=== PATIENT | female | born 1965 | race Caucasian/White ===

== ENCOUNTER 2019-06-04 23:46 | Emergency (ER) | payer SELFPAY ==
[2019-06-05 00:29] LABS: ABSOLUTE BASOPHILS # (AUTO) 0.1 10^3/uL (0.0-0.2); ABSOLUTE EOSINOPHILS # (AUTO) 0.2 10^3/uL (0.0-0.6); ABSOLUTE LYMPHOCYTES (AUTO) 2.4 10^3/uL (0.5-4.7); ABSOLUTE MONOCYTES (AUTO) 0.7 10^3/uL (0.1-1.4); ABSOLUTE NEUT (AUTO) 3.7 10^3/uL (1.7-8.2); EOSINOPHILS % (AUTO) 3.3 % (0-6); HEMATOCRIT 42.7 % (36.0-47.0); HEMOGLOBIN 14.4 g/dL (12.0-15.5); MEAN CORPUSCULAR HEMOGLOBIN 30.8 pg (27.0-33.4); MEAN CORPUSCULAR HGB CONC 33.6 g/dL (32.0-36.0); MEAN CORPUSCULAR VOLUME 92 fl (80-97); MONOCYTES % (AUTO) 9.5 % (3-13); PLATELET COUNT 325 10^3/uL (150-450); RED BLOOD COUNT 4.66 10^6/uL (3.72-5.28); RED CELL DISTRIBUTION WIDTH 12.9 % (11.5-14.0); SEGMENTED NEUTROPHILS % (AUTO) 52.2 % (42-78); TOTAL CELLS COUNTED % (AUTO) 100 %; WHITE BLOOD COUNT 7.1 10^3/uL (4.0-10.5)
[2019-06-05 00:47] LABS: ACETAMINOPHEN < 10 ug/mL (10-30); ALCOHOL < 10 mg/dL (NONE DETECTED); ALKALINE PHOSPHATASE 77 U/L (38-126); ANION GAP 9 (5-19); ASPARTATE AMINO TRANSFERASE 22 U/L (14-36); BILIRUBIN,DIRECT 0.2 mg/dL (0.0-0.4); BILIRUBIN,TOTAL 0.4 mg/dL (0.2-1.3); BLOOD UREA NITROGEN 17 mg/dL (7-20); CALCIUM 9.2 mg/dL (8.4-10.2); CARBON DIOXIDE 25 mmol/L (22-30); CHLORIDE 104 mmol/L (98-107); GLUCOSE 120 mg/dL (75-110); POTASSIUM 3.9 mmol/L (3.6-5.0); SALICYLATE < 1.0 mg/dL (2.0-20.0); TOTAL PROTEIN 6.8 g/dL (6.3-8.2)
--- NOTE | 2019-06-05 02:15 | ER Document Report ---
ED General - General Chief Complaint: Suicidal Ideation Stated Complaint: PSYCH Time Seen by Provider: 06/05/19 01:10 Mode of Arrival: Ambulatory TRAVEL OUTSIDE OF THE U.S. IN LAST 30 DAYS: No - HPI Patient complains to provider of: SI, hallucinations Onset: Other - over the last several days Onset/Duration: Gradual Quality of pain: No pain Severity: Moderate Pain Level: Denies Associated symptoms: None Exacerbated by: Denies Relieved by: Denies Similar symptoms previously: Yes Recently seen / treated by doctor: No Notes: 54 year old female with a history of Bipolar, Anxiety, Depression who is main tained on Vayas and Serroquel (but says she has been out of these medications for 2 weeks) here for hallucinations and thoughts of SI. The patient says she hears voices of people telling her to jump into oncoming traffic. The patient is very tangential in her ER room and a full history is difficult to obtain. The patient admits to polysubstance abuse with very recent Meth use. - Related Data Allergies/Adverse Reactions: No Known Allergies Allergy (Verified 06/05/19 00:32) Home Medications: Vayas. Seraquel. Alprazolam Past Medical History - Social History Smoking Status: Current Every Day Smoker Chew tobacco use (# tins/day): No Drug Abuse: Cocaine, Marijuana, Methamphetamine Family History: Reviewed & Not Pertinent Patient has suicidal ideation: Yes Patient has homicidal ideation: No - Past Medical History Cardiac Medical History: Reports: None Pulmonary Medical History: Reports: None EENT Medical History: Reports: None Neurological Medical History: Reports: None Endocrine Medical History: Reports: None Renal/ Medical History: Reports: None GI Medical History: Reports: None Musculoskeletal Medical History: Reports None Skin Medical History: Reports None Psychiatric Medical History: Reports: Hx Anxiety, Hx Bipolar Disorder, Hx Depression Review of Systems - Review of Systems Constitutional: No symptoms reported EENT: No symptoms reported Cardiovascular: No symptoms reported, Heart racing Gastrointestinal: No symptoms reported Genitourinary: No symptoms reported Female Genitourinary: No symptoms reported Musculoskeletal: No symptoms reported Skin: No symptoms reported Hematologic/Lymphatic: No symptoms reported Neurological/Psychological: Depression, Anxiety, Hallucinations, Suicidal ideation Physical Exam - Vital signs Vitals: Temp Pulse Resp BP Pulse Ox 97.4 F 92 26 H 139/71 H 99 06/04/19 23:57 06/04/19 23:57 06/04/19 23:57 06/04/19 23:57 06/04/19 23:57 - Notes Notes: GENERAL: Well-appearing, well-nourished and in no acute distress. HEAD: Atraumatic, normocephalic. EYES: Pupils equal round and reactive to light, extraocular movements intact, sclera anicteric, conjunctiva are normal. ENT: Nares patent, oropharynx clear without exudates. Moist mucous membranes. NECK: Normal range of motion, supple without lymphadenopathy or JVD. LUNGS: Breath sounds clear to auscultation bilaterally and equal. No wheezes rales or rhonchi. HEART: Regular rate and rhythm without murmurs, rubs or gallops. ABDOMEN: Soft, nontender, normoactive bowel sounds. No guarding, no rebound. No masses appreciated. EXTREMITIES: Normal range of motion, no pitting or edema. No clubbing or cyanosis. NEUROLOGICAL: Cranial nerves II through XII grossly intact. Normal speech, normal gait. PSYCH: Tangential, hearing voices, suicidal SKIN: Warm, Dry, normal turgor, no rashes or lesions noted. Course - Re-evaluation Re-evalutation: 06/05/19 05:23 The patient is medically cleared and awaiting psych disposition. The patient has been off her meds and using Meth but she has thoughts of SI. - Vital Signs Vital signs: Temp Pulse Resp BP Pulse Ox 97.5 F 87 20 125/69 96 06/05/19 04:17 06/05/19 04:17 06/05/19 04:17 06/05/19 04:17 06/05/19 04:17 - Laboratory Result Diagrams: 06/05/19 00:15 06/05/19 00:15 Laboratory results interpreted by me: 06/05/19 06/05/19 06/05/19 00:15 00:15 04:10 Glucose 120 H Urine Blood SMALL H Salicylates < 1.0 L Acetaminophen < 10 L Vayas < 0.2 L - Transfer of Care Care transferred to following provider: Dr. Hoyt at shift change at 6am on 06/05/19. Discharge - Discharge Clinical Impression: Suicidal ideation, Substance abuse Disposition: OTHER
[2019-06-05 04:28] LABS: APPEARANCE,URINE CLEAR; BILIRUBIN,URINE NEGATIVE (NEGATIVE); COLOR,URINE YELLOW; GLUCOSE, URINE NEGATIVE (NEGATIVE); KETONES,URINE NEGATIVE (NEGATIVE); LEUKOCYTE ESTERASE,URINE NEGATIVE (NEGATIVE); NITRITE,URINE NEGATIVE (NEGATIVE); PROTEIN,URINE NEGATIVE (NEGATIVE); URINE SPECIFIC GRAVITY 1.015; UROBILINOGEN,URINE NEGATIVE mg/dL (<2.0)
[2019-06-05 04:44] LABS: URINE BARBITURATES SCREEN NEGATIVE; URINE BENZODIAZEPINES SCREEN NEGATIVE; URINE COCAINE SCREEN NEGATIVE; URINE MARIJUANA (THC) SCREEN NEGATIVE; URINE METHADONE SCREEN NEGATIVE; URINE PHENCYCLIDINE SCREEN NEGATIVE
--- NOTE | 2019-06-05 13:09 | EKG REPORT ---
SEVERITY:- NORMAL ECG - SINUS RHYTHM : Confirmed by: Latesha Easley MD 05-Jun-2019 13:08:19
--- NOTE | 2019-06-05 13:09 | ER Document Report ---
Doctor's Note Notes: 06/05/19 13:00 PHYSICAL EXAMINATION: GENERAL: Patient with increased psychomotor agitation and in no acute distress. HEAD: Atraumatic, normocephalic. EYES: sclera anicteric, conjunctiva are normal. ENT: nares patent. Moist mucous membranes. NECK: Normal range of motion, supple without lymphadenopathy LUNGS: CTAB and equal. No wheezes rales or rhonchi. HEART: Regular rate and rhythm without murmurs EXTREMITIES: Normal range of motion, no pitting edema. No cyanosis. BACK: No midline tenderness, no step-off or deformity. No CVA tenderness NEUROLOGICAL: Cranial nerves grossly intact. Normal speech. PSYCH: Patient with increased psychomotor agitation and occasional tangential speech. Patient reports occasional suicidal ideation SKIN: Warm, Dry, normal turgor, no rashes or lesions noted Patient's diagnostic evaluation and notes reviewed. Patient appears medically stable for transfer or discharge pending mental health evaluation. 06/05/19 14:58 Mental health team recommend Haldol 5 mg orally twice a day and Cogentin 1 mg daily. (NOAH PEDROZA)
[2019-06-05] MEDS ORDERED: BENZTROPINE MESYLATE 1 MG TABLET PO ONE (14:57)
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
[2019-06-05] MEDS: HALOPERIDOL 5 MG TABLET PO SCH (18:27)
[2019-06-06] MEDS ORDERED: BENZTROPINE MESYLATE 1 MG TABLET PO SCH (10:00)
[2019-06-06] MEDS: HALOPERIDOL 5 MG TABLET PO SCH ×2 (10:21→19:32)
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
[2019-06-06] MEDS ORDERED: IBUPROFEN 800 MG TABLET PO ONE (14:36)
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
[2019-06-06 22:32] VITALS: BP 125/49
== END 2019-06-06 21:30 | disposition other institution (70) ==
LOC: ER 23:46
DX: R45.851 Suicidal ideations (principal); F14.10 Cocaine abuse, uncomplicated; F12.10 Cannabis abuse, uncomplicated; F15.10 Other stimulant abuse, uncomplicated; F31.9 Bipolar disorder, unspecified; M54.9 Dorsalgia, unspecified; R44.0 Auditory hallucinations; F17.200 Nicotine dependence, unspecified, uncomplicated; F41.9 Anxiety disorder, unspecified
CPT/HCPCS: 36415; 80053; 80178; 80307; 81001; 85025; 93005; 93010; 99285

== ENCOUNTER 2019-06-27 17:41 | Emergency (ER) | payer SELFPAY ==
--- NOTE | 2019-06-27 18:37 | ER Document Report ---
ED Medical Screen (RME) - General Chief Complaint: Psych Problem Stated Complaint: PSYCH EVAL/SUICIDAL IDEATION Time Seen by Provider: 06/27/19 18:33 Mode of Arrival: Ambulatory Information source: Patient Notes: This 54-year-old female presents emergency department with reports of some suicidal ideations. Reports she just got out of the hospital a few weeks ago. Reports she lives with her daughter. Also reports she is feeling electricity run through her body and is messing up her thoughts. Reports history of bipolar. She reports denies drug abuse. Patient is calm. I have greeted and performed a rapid initial assessment of this patient. A comprehensive ED assessment and evaluation of the patient, analysis of test results and completion of the medical decision making process will be conducted by additional ED providers. TRAVEL OUTSIDE OF THE U.S. IN LAST 30 DAYS: No - Related Data Allergies/Adverse Reactions: No Known Allergies Allergy (Verified 06/05/19 00:32) Past Medical History Psychiatric Medical History: Reports: Hx Anxiety, Hx Bipolar Disorder, Hx Dep ression Physical Exam - Vital signs Vitals: Temp Pulse Resp BP Pulse Ox 98.5 F 99 18 131/84 H 98 06/27/19 18:07 06/27/19 18:07 06/27/19 18:07 06/27/19 18:07 06/27/19 18:07 Course - Vital Signs Vital signs: Temp Pulse Resp BP Pulse Ox 98.5 F 99 18 131/84 H 98 06/27/19 18:07 06/27/19 18:07 06/27/19 18:07 06/27/19 18:07 06/27/19 18:07
--- NOTE | 2019-06-27 19:17 | ER Document Report ---
ED Psych Disorder / Suicide - General Chief Complaint: Psych Problem Stated Complaint: PSYCH EVAL/SUICIDAL IDEATION Time Seen by Provider: 06/27/19 18:33 Mode of Arrival: Ambulatory Notes: 54-year-old female presents for suicidal ideation and feeling as though there are "frequencies running through her body." Patient denies a specific plan however states she is suicidal for the past few days due to "depression." P atient states she was here a few weeks ago and has not been taking her psychiatric medications. Patient denies any pain or nausea/vomiting. Patient has no other complaints. TRAVEL OUTSIDE OF THE U.S. IN LAST 30 DAYS: No - Related Data Allergies/Adverse Reactions: No Known Allergies Allergy (Verified 06/05/19 00:32) Home Medications: lithium Past Medical History - General Information source: Patient - Social History Smoking Status: Current Every Day Smoker Frequency of alcohol use: None Drug Abuse: None Family History: Reviewed & Not Pertinent Patient has suicidal ideation: Yes Patient has homicidal ideation: No Psychiatric Medical History: Reports: Hx Anxiety, Hx Bipolar Disorder, Hx Depression Review of Systems - Review of Systems Notes: Constitutional: Negative for fever. HENT: Negative for sore throat. Eyes: Negative for visual changes. Cardiovascular: Negative for chest pain. Respiratory: Negative for shortness of breath. Gastrointestinal: Negative for abdominal pain, vomiting or diarrhea. Genitourinary: Negative for dysuria. Musculoskeletal: Negative for back pain. Skin: Negative for rash. Neurological: Negative for headaches, weakness or numbness. Psych: Positive for SI. 10 point ROS negative except as marked above and in HPI. Physical Exam - Vital signs Vitals: Temp Pulse Resp BP Pulse Ox 98.5 F 99 18 131/84 H 98 06/27/19 18:07 06/27/19 18:07 06/27/19 18:07 06/27/19 18:07 06/27/19 18:07 - Notes Notes: GENERAL: Well-appearing, well-nourished and in no acute distress. HEAD: Atraumatic, normocephalic. EYES: Extraocular movements intact, sclera anicteric, conjunctiva are normal. NECK: Normal range of motion, supple without lymphadenopathy or JVD. LUNGS: Breath sounds clear to auscultation bilaterally and equal. No wheezes rales or rhonchi. HEART: Regular rate and rhythm without murmurs, rubs or gallops. ABDOMEN: Soft, nontender. No guarding, no rebound. No masses appreciated. EXTREMITIES: Normal range of motion, no pitting or edema. No clubbing or cyanosis. NEUROLOGICAL: Cranial nerves II through XII grossly intact. Normal speech, normal gait. PSYCH: Normal mood, normal affect. SKIN: Warm, Dry, normal turgor, no rashes or lesions noted. Course - Re-evaluation Re-evalutation: 06/27/19 19:15 54-year-old female presents for SI and feeling as though there are "frequencies running through her body." Patient does not have a specific plan. Patient is supposed to be on lithium. Patient was seen in this ER a few weeks ago for similar complaints. Patient has no other complaints. Nontoxic, well-appearing. Lungs clear to auscultation bilaterally. Regular rate and rhythm. Abdomen soft nontender. PE is otherwise unremarkable. Lab work and UA initiated to medically clear patient. Robinette level was also ordered. Once lab work has been received and resulted patient will be medically cleared for psychiatric evaluation. 06/27/19 19:50 Patient's potassium is 5.2 and BUN is elevated. Patient given 1 L of fluid to drink p.o. Patient has been medically cleared at this time. - Vital Signs Vital signs: Temp Pulse Resp BP Pulse Ox 98.5 F 99 18 131/84 H 98 06/27/19 18:07 06/27/19 18:07 06/27/19 18:07 06/27/19 18:07 06/27/19 18:07 - Laboratory Result Diagrams: 06/27/19 18:48 06/27/19 18:48 Laboratory results interpreted by me: 06/27/19 06/27/19 18:48 18:48 Potassium 5.2 H BUN 24 H Est GFR (MDRD) Non-Af 54 L Urine Blood SMALL H Salicylates < 1.0 L Acetaminophen < 10 L Discharge - Discharge Clinical Impression: Suicidal ideation Condition: Stable Disposition: PSYCH HOSP/UNIT
[2019-06-27 19:18] LABS: ABSOLUTE EOSINOPHILS # (AUTO) 0.2 10^3/uL (0.0-0.6); ABSOLUTE LYMPHOCYTES (AUTO) 2.3 10^3/uL (0.5-4.7); ABSOLUTE MONOCYTES (AUTO) 0.6 10^3/uL (0.1-1.4); ABSOLUTE NEUT (AUTO) 6.6 10^3/uL (1.7-8.2); BASOPHILS % (AUTO) 0.5 % (0-2); EOSINOPHILS % (AUTO) 2.3 % (0-6); HEMATOCRIT 44.7 % (36.0-47.0); HEMOGLOBIN 15.5 g/dL (12.0-15.5); LYMPHOCYTES % (AUTO) 23.7 % (13-45); MEAN CORPUSCULAR HEMOGLOBIN 31.7 pg (27.0-33.4); MEAN CORPUSCULAR HGB CONC 34.7 g/dL (32.0-36.0); MEAN CORPUSCULAR VOLUME 91 fl (80-97); MONOCYTES % (AUTO) 6.5 % (3-13); PLATELET COUNT 404 10^3/uL (150-450); RED CELL DISTRIBUTION WIDTH 13.6 % (11.5-14.0); TOTAL CELLS COUNTED % (AUTO) 100 %; WHITE BLOOD COUNT 9.9 10^3/uL (4.0-10.5)
[2019-06-27 19:29] LABS: APPEARANCE,URINE CLEAR; BILIRUBIN,URINE NEGATIVE (NEGATIVE); COLOR,URINE STRAW; GLUCOSE, URINE NEGATIVE (NEGATIVE); KETONES,URINE NEGATIVE (NEGATIVE); LEUKOCYTE ESTERASE,URINE NEGATIVE (NEGATIVE); NITRITE,URINE NEGATIVE (NEGATIVE); PROTEIN,URINE NEGATIVE (NEGATIVE); URINE SPECIFIC GRAVITY 1.014; UROBILINOGEN,URINE NEGATIVE mg/dL (<2.0)
[2019-06-27 19:33] LABS: URINE AMPHETAMINES SCREEN NEGATIVE; URINE BARBITURATES SCREEN NEGATIVE; URINE BENZODIAZEPINES SCREEN NEGATIVE; URINE COCAINE SCREEN NEGATIVE; URINE MARIJUANA (THC) SCREEN NEGATIVE; URINE METHADONE SCREEN NEGATIVE; URINE PHENCYCLIDINE SCREEN NEGATIVE
[2019-06-27 19:40] LABS: ACETAMINOPHEN < 10 ug/mL (10-30); ALBUMIN 4.3 g/dL (3.5-5.0); ALCOHOL < 10 mg/dL (NONE DETECTED); ALKALINE PHOSPHATASE 94 U/L (38-126); ANION GAP 8 (5-19); ASPARTATE AMINO TRANSFERASE 24 U/L (14-36); BILIRUBIN,DIRECT 0.2 mg/dL (0.0-0.4); BILIRUBIN,TOTAL 0.4 mg/dL (0.2-1.3); BLOOD UREA NITROGEN 24 mg/dL (7-20); CALCIUM 9.8 mg/dL (8.4-10.2); CARBON DIOXIDE 30 mmol/L (22-30); CHLORIDE 102 mmol/L (98-107); GLUCOSE 94 mg/dL (75-110); LITHIUM 0.7 mEq/L (0.6-1.2); POTASSIUM 5.2 mmol/L (3.6-5.0); SALICYLATE < 1.0 mg/dL (2.0-20.0); TOTAL PROTEIN 7.3 g/dL (6.3-8.2)
[2019-06-27] MEDS ORDERED: NICOTINE 14 MG/24 HR PATCH.TD24 TD ONE (20:59)
[2019-06-27] MEDS ORDERED: HYDROXYZINE PAMOATE 50 MG CAPSULE PO ONE (21:54)
--- NOTE | 2019-06-27 22:54 | EKG REPORT ---
SEVERITY:- NORMAL ECG - SINUS RHYTHM : Confirmed by: Latesha Easley MD 27-Jun-2019 22:54:08
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
--- NOTE | 2019-06-28 13:21 | ER Document Report ---
Doctor's Note Notes: 06/28/19 13:20 The psychology/psychiatry team is seen and assessed the patient. They do not believe that the patient is a threat to themselves at this time. Patient denies any suicidal or homicidal ideations. Patient denies any auditory visual hallucinations. Patient has been taking her lithium. We have provided outpa tient follow-up for Valeria Fernandez. We did call the patient's daughter who is currently at bedside. She is comfortable with the patient going home. Strict return precautions have been explained.
[2019-06-28 13:31] VITALS: BP 120/61
== END 2019-06-28 13:31 | disposition home or self-care (01) ==
LOC: ER 17:41
DX: R45.851 Suicidal ideations (principal); F17.200 Nicotine dependence, unspecified, uncomplicated
CPT/HCPCS: 36415; 80053; 80178; 80307; 81001; 85025; 93005; 93010; 99285

== ENCOUNTER 2019-07-19 16:00 | Emergency (ER) | payer SELFPAY ==
--- NOTE | 2019-07-19 16:18 | ER Document Report ---
ED Medical Screen (RME) - General Chief Complaint: Psych Problem Stated Complaint: PSYCH EVAL Time Seen by Provider: 07/19/19 16:14 TRAVEL OUTSIDE OF THE [place].S. IN LAST 30 DAYS: No - HPI Notes: 07/19/19 16:16 Patient is a 54-year-old female with a history of anxiety, depression, bipolar who presents complaining that she is having acute psychosis and the voices in her head are telling her to overdose on her lithium. Patient states that she does have a plan to do so, which is why she came here for help. She has been taking her medicines otherwise as directed. She is able to eat and drink without difficulty. No fever, chest pain, shortness of breath. I have treated and performed a rapid initial assessment of this patient. A comprehensive ED assessment and evaluation of the patient, analysis of test results and completion of medical decision making process will be conducted by additional ED providers. PHYSICAL EXAMINATION: GENERAL: Well-appearing, well-nourished and in no acute distress. Answers questions appropriately. Psych: Patient is emotional, tearful, poor eye contact - Related Data Allergies/Adverse Reactions: No Known Allergies Allergy (Verified 07/19/19 16:14) Past Medical History Psychiatric Medical History: Reports: Hx Anxiety, Hx Bipolar Disorder, Hx Depression - psychotic
[2019-07-19 16:57] LABS: ABSOLUTE EOSINOPHILS # (AUTO) 0.1 10^3/uL (0.0-0.6); ABSOLUTE LYMPHOCYTES (AUTO) 1.7 10^3/uL (0.5-4.7); ABSOLUTE MONOCYTES (AUTO) 0.5 10^3/uL (0.1-1.4); ABSOLUTE NEUT (AUTO) 4.6 10^3/uL (1.7-8.2); BASOPHILS % (AUTO) 0.6 % (0-2); EOSINOPHILS % (AUTO) 1.3 % (0-6); HEMATOCRIT 43.9 % (36.0-47.0); HEMOGLOBIN 15.4 g/dL (12.0-15.5); LYMPHOCYTES % (AUTO) 24.3 % (13-45); MEAN CORPUSCULAR HEMOGLOBIN 31.6 pg (27.0-33.4); MEAN CORPUSCULAR HGB CONC 35.1 g/dL (32.0-36.0); MEAN CORPUSCULAR VOLUME 90 fl (80-97); MONOCYTES % (AUTO) 7.8 % (3-13); PLATELET COUNT 292 10^3/uL (150-450); RED BLOOD COUNT 4.87 10^6/uL (3.72-5.28); RED CELL DISTRIBUTION WIDTH 13.1 % (11.5-14.0); TOTAL CELLS COUNTED % (AUTO) 100 %; WHITE BLOOD COUNT 6.9 10^3/uL (4.0-10.5)
[2019-07-19 17:02] LABS: APPEARANCE,URINE CLEAR; BILIRUBIN,URINE NEGATIVE (NEGATIVE); COLOR,URINE YELLOW; GLUCOSE, URINE NEGATIVE (NEGATIVE); KETONES,URINE NEGATIVE (NEGATIVE); LEUKOCYTE ESTERASE,URINE NEGATIVE (NEGATIVE); NITRITE,URINE NEGATIVE (NEGATIVE); PROTEIN,URINE NEGATIVE (NEGATIVE); URINE SPECIFIC GRAVITY 1.011; UROBILINOGEN,URINE NEGATIVE mg/dL (<2.0)
[2019-07-19 17:18] LABS: ALBUMIN 4.3 g/dL (3.5-5.0); ALKALINE PHOSPHATASE 97 U/L (38-126); ANION GAP 7 (5-19); ASPARTATE AMINO TRANSFERASE 20 U/L (14-36); BILIRUBIN,TOTAL 0.4 mg/dL (0.2-1.3); BLOOD UREA NITROGEN 16 mg/dL (7-20); CALCIUM 10.1 mg/dL (8.4-10.2); CARBON DIOXIDE 28 mmol/L (22-30); CHLORIDE 103 mmol/L (98-107); GLUCOSE 97 mg/dL (75-110); POTASSIUM 4.9 mmol/L (3.6-5.0); TOTAL PROTEIN 7.2 g/dL (6.3-8.2)
[2019-07-19 17:21] LABS: URINE AMPHETAMINES SCREEN NEGATIVE; URINE BARBITURATES SCREEN NEGATIVE; URINE BENZODIAZEPINES SCREEN NEGATIVE; URINE COCAINE SCREEN NEGATIVE; URINE MARIJUANA (THC) SCREEN NEGATIVE; URINE METHADONE SCREEN NEGATIVE; URINE PHENCYCLIDINE SCREEN NEGATIVE
[2019-07-19 17:23] LABS: ACETAMINOPHEN < 10 ug/mL (10-30); ALCOHOL < 10 mg/dL (NONE DETECTED); LITHIUM < 0.2 mEq/L (0.6-1.2); SALICYLATE < 1.0 mg/dL (2.0-20.0)
[2019-07-19] MEDS ORDERED: NICOTINE 14 MG/24 HR PATCH.TD24 TD ONE (17:54)
--- NOTE | 2019-07-19 17:58 | ER Document Report ---
ED General - General Chief Complaint: Suicidal Ideation Stated Complaint: PSYCH EVAL Time Seen by Provider: 07/19/19 16:14 Notes: 54-year-old female with history of anxiety, depression, bipolar presents for SI. Patient states the voices in her head are telling her to overdose on her lithium. Patient states she has these intermittent episodes of psychosis where this occurs. Patient denies any chest pain, dyspnea, nausea/vomiting, or pain anywhere. Patient is requesting a nicotine patch due to smoking a pack of cigarettes every 2 days. TRAVEL OUTSIDE OF THE [place] IN LAST 30 DAYS: No - Related Data Allergies/Adverse Reactions: No Known Allergies Allergy (Verified 07/19/19 16:14) Past Medical History - Social History Smoking Status: Current Every Day Smoker Drug Abuse: Methamphetamine Family History: Reviewed & Not Pertinent Patient has suicidal ideation: No Patient has homicidal ideation: No Psychiatric Medical History: Reports: Hx Anxiety, Hx Bipolar Disorder, Hx De pression - psychotic Review of Systems - Review of Systems Notes: Constitutional: Negative for fever. HENT: Negative for sore throat. Eyes: Negative for visual changes. Cardiovascular: Negative for chest pain. Respiratory: Negative for shortness of breath. Gastrointestinal: Negative for abdominal pain, vomiting or diarrhea. Genitourinary: Negative for dysuria. Musculoskeletal: Negative for back pain. Skin: Negative for rash. Neurological: Negative for headaches, weakness or numbness. Psych: Positive for SI and auditory hallucinations. Negative for HI. 10 point ROS negative except as marked above and in HPI. Physical Exam - Vital signs Vitals: Temp Pulse Resp BP Pulse Ox 97.5 F 89 18 132/88 H 100 07/19/19 16:17 07/19/19 16:17 07/19/19 16:17 07/19/19 16:17 07/19/19 16:17 - Notes Notes: GENERAL: Well-appearing, well-nourished and in no acute distress. HEAD: Atraumatic, normocephalic. EYES: Extraocular movements intact, sclera anicteric, conjunctiva are normal. NECK: Normal range of motion, supple without lymphadenopathy or JVD. LUNGS: Breath sounds clear to auscultation bilaterally and equal. No wheezes rales or rhonchi. HEART: Regular rate and rhythm without murmurs, rubs or gallops. ABDOMEN: Soft, nontender. No guarding, no rebound. No masses appreciated. EXTREMITIES: Normal range of motion, no pitting or edema. No clubbing or cyanosis. NEUROLOGICAL: Cranial nerves II through XII grossly intact. Normal speech, normal gait. PSYCH: Depressed mood. SKIN: Warm, Dry, normal turgor, no rashes or lesions noted. Course - Re-evaluation Re-evalutation: 07/19/19 SI with auditory hallucinations. Similar episodes when "I am psychotic." Labwork reviewed. Pt is medically cleared at this time for psychiatric evaluation. - Vital Signs Vital signs: Temp Pulse Resp BP Pulse Ox 97.5 F 89 18 132/88 H 100 07/19/19 16:17 07/19/19 16:17 07/19/19 16:17 07/19/19 16:17 07/19/19 16:17 - Laboratory Result Diagrams: 07/19/19 16:27 07/19/19 16:27 Laboratory results interpreted by me: 07/19/19 07/19/19 16:27 16:27 Est GFR (MDRD) Non-Af 57 L Urine Blood MODERATE H Salicylates < 1.0 L Acetaminophen < 10 L [place] < 0.2 L Discharge - Discharge Clinical Impression: Suicidal ideation Psychosis Qualifiers: Psychosis type: unspecified psychosis type Qualified Code(s): F29 - Unspecified psychosis not due to a substance or known physiological condition Disposition: PSYCH HOSP/UNIT
--- NOTE | 2019-07-19 18:33 | EKG REPORT ---
SEVERITY:- NORMAL ECG - SINUS RHYTHM : Confirmed by: Latesha Easley MD 19-Jul-2019 18:32:25
[2019-07-19] MEDS ORDERED: MELATONIN 5 MG TABLET PO ONE (23:42)
--- NOTE | 2019-07-20 10:15 | PSYCHOLOGICAL NOTE ---
Psych Note - Psych Note Date seen by psych provider: 07/20/19 Time seen by psych provider: 08:05 Psych Note: Reason for Consult: Suicidal ideation Consent Permissions: 54-year-old female with history of anxiety, depression, bipolar presents for suicidal ideation. Patient reports her daughter brought her to [facility] because "I'm depressed, I want to kill myself and psychotic episodes." Patient reports she is unable to get her medications because she can not afford them and her daughter is unable to assist her with getting them. Patient reports thoughts of overdosing on medications. When asked what medication she reports she has a bottle of lithium. Patient is asked why she has not been taking her lithium as directed to help with her symptoms she reports "I cannot, I forget, I do not want to, I do not know." Patient is asked to describe what a "psychotic episode" is and she reports its when she has anxiety is depressed and hears voices that tell her to kill herself. She reports that she is come to [facility] every time she hears voices. She confirms she has been clean off drugs since coming to [place]. Patient states that while her daughter is unable to help her fill her medication she did help her fill out the paperwork for Medicaid and states her daughter is planning to mail the paperwork tomorrow; "hopefully that will help." Patient is alert and orientated to person, place, time and circumstance. Mood is euthymic with congruent affect. Patient reports chronic passive suicidal ideation ie no plans means or intent. Patient denies homicidal ideation. Delusions are absent and behaviors congruent with an intact reality based presentation ie organized and linear thought process. Eye contact is well- maintained. Conversational speech is within normal rate, tone and prosody. Intellectual abilities appear to be within the average range. Attention and concentration are good. Insight, judgment, impulse control are fair. Impression\\plan: Patient is cleared from acute psychiatric services. Patient reports chronic passive suicidal ideation ie no plans, means or intent. She disclosed no taking her medications and has not followed up with outpatient therapy because she can not afford them. Then provided conflicting information stating she does have a bottle of [place], but states she has not been taking them. Patient reports continued homelessness. Patient states she does have a photo id now but has been unsuccessful in getting a bed at the senior care. Patient was provided a local resource list of area provider for outpatient therapy and medication management. Patient is currently noncompliant with recommendations and medication. Patient is recommended to follow up with outpatient mental health provider, MIRIAN, tomorrow as a walk in. Dr. Villela was consulted to care management of this patient; attending physicians in agreement with recommendations and disposition.
--- NOTE | 2019-07-20 13:35 | ER Document Report ---
Doctor's Note Notes: 07/20/19 13:33 PHYSICAL EXAMINATION: GENERAL: Appears well, healthy, well-nourished, no acute distress. LUNGS: Equal breath sounds bilaterally and clear to auscultation. No wheezes rales or rhonchi. CARDIOVASCULAR: S1-S2, regular rate, regular rhythm. Radial pulses 2+, normal. ABDOMEN: Normoactive bowel sounds. Soft, nontender, no guarding, no rebound tenderness, and no masses palpated. PSYCH: Depressed mood, flat affect. Patient denies any suicidal or homicidal ideation. She states that she was going to take some pills, but is not going to now. Patient has been cleared by mental health. She is to follow-up outpatient. Patient given resources for homeless shelters. Follow-up precautions were given. Verbal discharge instructions were given to the patient. They verbalized understanding. They are stable for discharge.
[2019-07-20 14:27] VITALS: BP 134/78
== END 2019-07-20 14:05 | disposition home or self-care (01) ==
LOC: ER 16:00
DX: R45.851 Suicidal ideations (principal); R44.0 Auditory hallucinations; F17.210 Nicotine dependence, cigarettes, uncomplicated; F14.10 Cocaine abuse, uncomplicated; Z59.0 Homelessness
CPT/HCPCS: 93005; 99285; 36415; 80307 ×4; 80178; 85025; 80053; 81001; 93010; J3490

== ENCOUNTER 2019-08-14 21:42 | Emergency (ER) | payer SELFPAY ==
[2019-08-14 22:26] LABS: ABSOLUTE BASOPHILS # (AUTO) 0.1 10^3/uL (0.0-0.2); ABSOLUTE EOSINOPHILS # (AUTO) 0.2 10^3/uL (0.0-0.6); ABSOLUTE LYMPHOCYTES (AUTO) 2.3 10^3/uL (0.5-4.7); ABSOLUTE MONOCYTES (AUTO) 0.8 10^3/uL (0.1-1.4); ABSOLUTE NEUT (AUTO) 5.5 10^3/uL (1.7-8.2); BASOPHILS % (AUTO) 0.8 % (0-2); EOSINOPHILS % (AUTO) 2.7 % (0-6); HEMATOCRIT 38.6 % (36.0-47.0); HEMOGLOBIN 13.2 g/dL (12.0-15.5); LYMPHOCYTES % (AUTO) 25.9 % (13-45); MEAN CORPUSCULAR HEMOGLOBIN 31.3 pg (27.0-33.4); MEAN CORPUSCULAR HGB CONC 34.3 g/dL (32.0-36.0); MEAN CORPUSCULAR VOLUME 91 fl (80-97); MONOCYTES % (AUTO) 9.1 % (3-13); PLATELET COUNT 268 10^3/uL (150-450); RED BLOOD COUNT 4.23 10^6/uL (3.72-5.28); RED CELL DISTRIBUTION WIDTH 13.2 % (11.5-14.0); SEGMENTED NEUTROPHILS % (AUTO) 61.5 % (42-78); TOTAL CELLS COUNTED % (AUTO) 100 %
[2019-08-14 22:40] LABS: APPEARANCE,URINE CLEAR; BILIRUBIN,URINE NEGATIVE (NEGATIVE); COLOR,URINE STRAW; GLUCOSE, URINE NEGATIVE (NEGATIVE); KETONES,URINE NEGATIVE (NEGATIVE); LEUKOCYTE ESTERASE,URINE NEGATIVE (NEGATIVE); NITRITE,URINE NEGATIVE (NEGATIVE); PROTEIN,URINE NEGATIVE (NEGATIVE); URINE SPECIFIC GRAVITY 1.009; UROBILINOGEN,URINE NEGATIVE mg/dL (<2.0)
[2019-08-14 22:43] LABS: ALBUMIN 3.8 g/dL (3.5-5.0); ALKALINE PHOSPHATASE 97 U/L (38-126); ANION GAP 6 (5-19); ASPARTATE AMINO TRANSFERASE 18 U/L (14-36); BILIRUBIN,DIRECT 0.3 mg/dL (0.0-0.4); BILIRUBIN,TOTAL 0.3 mg/dL (0.2-1.3); BLOOD UREA NITROGEN 23 mg/dL (7-20); CALCIUM 9.1 mg/dL (8.4-10.2); CARBON DIOXIDE 25 mmol/L (22-30); CHLORIDE 108 mmol/L (98-107); GLUCOSE 87 mg/dL (75-110); POTASSIUM 4.8 mmol/L (3.6-5.0); TOTAL PROTEIN 6.8 g/dL (6.3-8.2)
[2019-08-14 22:44] LABS: ACETAMINOPHEN < 10 ug/mL (10-30)
[2019-08-14 22:51] LABS: URINE AMPHETAMINES SCREEN NEGATIVE; URINE BARBITURATES SCREEN NEGATIVE; URINE BENZODIAZEPINES SCREEN NEGATIVE; URINE COCAINE SCREEN NEGATIVE; URINE MARIJUANA (THC) SCREEN NEGATIVE; URINE METHADONE SCREEN NEGATIVE; URINE PHENCYCLIDINE SCREEN NEGATIVE
[2019-08-14] MEDS ORDERED: NORMAL SALINE 1000 ML 1,000 ML IV ONE (22:51)
[2019-08-15] MEDS ORDERED: NICOTINE 21 MG/24 HR PATCH.TD24 TD ONE (00:05)
--- NOTE | 2019-08-15 01:29 | ER Document Report ---
ED General <SHILA FELICIANO IV - Last Filed: 08/15/19 05:35> - General TRAVEL OUTSIDE OF THE [place].S[place] IN LAST 30 DAYS: No <SUSHANT BENAVIDEZ - Last Filed: 08/16/19 00:06> - General Chief Complaint: Overdose Stated Complaint: LITHIUM OVERDOSE Time Seen by Provider: 08/14/19 23:15 Primary Care Provider: HUNG STATON MD [NO LOCAL MD] - Follow up as needed - HPI Notes: 54-year-old female with a history of bipolar disorder for which she has been prescribed lithium reportedly took an overdose intentionally around 8 PM. Patient is currently living with her daughter and got into an argument with her daughter and decided she wanted to commit suicide. She is unable to tell me the strength or specific quantity of tablets but says she took "a handful". She is currently asymptomatic. She has not vomited. Patient denies any coingestions. She denies drinking tonight. She denies hallucinations auditory or visual. She denies use of any street drugs. She is a heavy cigarette smoker. She denies any other active medical problems. (SUSHANT BENAVIDEZ) - Related Data Allergies/Adverse Reactions: No Known Allergies Allergy (Verified 07/19/19 16:14) Past Medical History - General Information source: Patient, [facility], [facility] Records - Social History Smoking Status: Current Every Day Smoker Frequency of alcohol use: Rare Drug Abuse: None Lives with: Family Family History: Reviewed & Not Pertinent Patient has suicidal ideation: Yes Patient has homicidal ideation: No Psychiatric Medical History: Reports: Hx Anxiety, Hx Bipolar Disorder, Hx Depression - psychotic <SUSHANT BENAVIDEZ - Last Filed: 08/16/19 00:06> Review of Systems <SUSHANT BENAVIDEZ - Last Filed: 08/16/19 00:06> - Review of Systems Notes: Constitutional: Negative for fever. HENT: Negative for sore throat. Eyes: Negative for visual changes. Cardiovascular: Negative for chest pain. Respiratory: Negative for shortness of breath. Gastrointestinal: Negative for abdominal pain, vomiting or diarrhea. Genitourinary: Negative for dysuria. Musculoskeletal: Negative for back pain. Skin: Negative for rash. Neurological: Negative for headaches, weakness or numbness. 10 point ROS negative except as marked above and in HPI. (SUSHANT BENAVIDEZ) Physical Exam <SUSHANT BENAVIDEZ - Last Filed: 08/16/19 00:06> - Vital signs Vitals: Resp Pulse Ox 20 100 08/14/19 21:48 08/14/19 21:48 - Notes Notes: GENERAL: Well-developed well-nourished appearing in no acute distress. SKIN: Good turgor no rashes. HEAD: Normocephalic atraumatic. EYES: PERRLA. EOMI. Conjunctivae and sclerae clear. EARS: CANALS AND TMS CLEAR. NOSE: CLEAR. MOUTH: Moist mucosa. Good dentition. No stridor or edema. No drooling. NECK: Supple. No masses or thyromegaly. No adenopathy. Carotids 2+ without bruits. No JVD. BACK: Symmetrical without tenderness. CHEST: Respirations unlabored. Breath sounds clear and symmetrical. HEART: Regular rhythm. No murmur gallop or rub. ABDOMEN: Soft nontender without masses, organomegaly or rebound. Bowel sounds normally active. No bruits. GENITALIA: Deferred. EXTREMITIES: No edema. No calf tenderness. Cap refill less than 1.5 seconds. Dorsalis pedis and posterior tibial pulses 3+ and symmetrical. NEUROLOGICAL: GCS 15. Alert and oriented x3. Normal gait. Fluent speech. Cranial nerves II through XII intact. Sensorimotor and cerebellar normal. Normal tone. No tremor. PSYCHIATRIC: Flat affect. (SUSHANT BENAVIDEZ) Course - Laboratory Result Diagrams: 08/14/19 22:12 08/14/19 22:12 <SHILA FELICIANO IV - Last Filed: 08/15/19 05:35> - Laboratory Result Diagrams: 08/14/19 22:12 08/14/19 22:12 <SUSHANT BENAVIDEZ - Last Filed: 08/16/19 00:06> - Re-evaluation Re-evalutation: 08/15/19 05:35 Patient is medically cleared (SHILA FELICIANO IV) 08/15/19 01:27 Case was discussed with [place] poison control l. Initial lithium level is 1.3. EKG shows normal sinus rhythm with normal intervals normal axis. Poison control has advised cardiac monitoring for the next 6 hours. If patient develops significant tremor, seizures or altered mental status she will require hemodialysis. She remains asymptomatic and hemodynamically stable during need 6-hour period of observation she may be cleared medically. I have petition for IVC. (SUSHANT BENAVIDEZ) - Vital Signs Vital signs: Temp Pulse Resp BP Pulse Ox 98.1 F 72 18 123/69 100 08/15/19 12:38 08/15/19 12:38 08/15/19 12:38 08/15/19 12:38 08/15/19 12:38 - Laboratory Laboratory results interpreted by me: 08/14/19 08/14/19 08/14/19 22:12 22:12 22:12 Chloride 108 H BUN 23 H Urine Blood MODERATE H Salicylates 1.0 L Acetaminophen < 10 L [place] 1.3 H - EKG Interpretation by Me Additional EKG results interpreted by me: 08/15/19 01:32 Twelve-lead EKG from 08/14/2019 at 2227 hrs. reviewed contemporaneously by me demonstrating normal sinus rhythm at a rate of 78 with a normal QRS axis of 73 degrees and normal intervals with no acute ST or T wave changes. (SUSHANT BENAVIDEZ) Discharge <SHILA FELICIANO IV - Last Filed: 08/15/19 05:35> <SUSHANT BENAVIDEZ - Last Filed: 08/16/19 00:06> - Discharge Clinical Impression: Suicidal ideation Intentional lithium overdose Qualifiers: Encounter type: initial encounter Qualified Code(s): T56.892A - Toxic effect of other metals, intentional self-harm, initial encounter Bipolar disorder Qualifiers: Active/Remission status: currently active Current bipolar episode type: depressed Current episode severity: severe Psychotic features: without psychotic features Qualified Code(s): F31.4 - Bipolar disorder, current episode depressed, severe, without psychotic features Disposition: Tertiary-Other Referrals: HUNG STATON MD [NO LOCAL MD] - Follow up as needed
--- NOTE | 2019-08-15 07:54 | EKG REPORT ---
SEVERITY:- NORMAL ECG - SINUS RHYTHM : Confirmed by: Finesse Guo MD 15-Aug-2019 07:54:07
[2019-08-15] MEDS ORDERED: ACETAMINOPHEN 325 MG TABLET PO ONE (08:54)
--- NOTE | 2019-08-15 10:02 | PSYCHOLOGICAL NOTE ---
Psych Note - Psych Note Date seen by psych provider: 08/15/19 Time seen by psych provider: 06:55 Psych Note: Patient is a 54-year-old female who presents to ED via EMS with OD via ingestion of 15-20, 300MG Bourg. Patient is known to behavioral health team. Patient reports "my daughter upset me and everything...I'm [place] and said fuck it." Patient states she became upset, and when she is upset she becomes anxious. Patient states her daughter "said things that hurt me that I thought we had worked through." Patient states that she also received "bad news" from her mobile refuge worker, Tasha. Patient states she has been working with Tasha for placement into a fpc but was denied due to her medical conditions ("multiple sclerosis in my back" and arthritis in knees). Patient states "it was a bad day." Patient states the SI/OD attempt was "impulsive" and expressed "thankful to God it wasn't lethal." Patient states that in the moment she wanted to , but has she has learned that she wants to and cannot be impulsive. Patient states she is compliant with her Bourg. Patient states she has appointments on Saturday with mobile crisis and at [facility] for therapy. Patient has an appointment on 08/27/2019 with vocational rehab. Patient states she has submitted her application for Medicaid. Patient verbalized that it is a slow process and expressed optimism and hopefulness in the future when services are put into place. Update 12:50- Clinician spoke with patient's daughter who states patient cannot return to the home due to patient's suicide attempt. There are 2 small children that live in the home patient was living in, and the home protein scientist states patient cannot return to the home due to concerns of how patient's future behavior (other suicide attempts) could impact the small children. Daughter reports there are no other available housing options for patient at this time. Patient was informed. Patient was accepted to [facility] center. Patient was informed that [facility], similar to the ED, is not a housing option. Patient was informed that at discharge from [facility], patient would be transitioned to the homeless detention. Patient was encouraged to follow-up with her mobile refuge worker, Tasha and Jason to have her housing needs met. Patient was tearful and expressed sadness that "my daughter won't even let me live with her for 2 weeks." Patient was informed of the transportation process to [facility] (via [facility], handcuffs). Patient verbalized understanding. Patient is alert and oriented to person, place, time and circumstance. Mood is eurythmic with congruent affect. Patient denies current suicidal ideation. Patient denies homicidal ideation. Delusions are absent and behavior is congruent with an intact reality based presentation (i.e., organized and linear through processes). There is no observed behavior that suggests patient is responding to internal stimuli. Patient is able to engage in organized, rational thought processes. Patient is able to express needs and wants in a logical miley r. Patient denies current auditory and visual hallucinations. Eye contact is appropriate. Conversational speech is within normal rate, tone, and prosody. Intellectual ability appears to be within average range. Attention and concentration are good. Insight, judgment and impulse control are currently fair. Impression/Plan: Patient is recommended for full IVC. Plan is to obtain appropriate placement. Patient presented to ED following OD on 15-20, 300MG of Bourg. Patient denies current suicidal ideation. Patient denies homicidal ideations. There is no observed behavior that suggests patient is responding to internal stimuli. Patient engaged in organized, rational, linear thought processes and was able to express needs and wants in a logical manner. Patient's Bourg level at her last ED visit was less than 0.2. Patient's current Bourg level is 1.3. This suggests patient has not been compliant with her medications, therefore the quantity of Bourg she reports ingesting would be consistent with current Bourg level. Patient admits that she becomes anxious and impulsive when she is upset. Patient is working towards stability with [facility] and [place], however patient's OD was the result of not being unable to utilize coping skills when emotionally distressed when triggered by argument with daughter and disappointing news. Patient was accepted for placement at [facility]. Dr. Villela was consulted on the care and management of this patient; attending physician is in agreement with recommendations and disposition.
[2019-08-15 12:40] VITALS: BP 123/69
--- NOTE | 2019-08-15 22:11 | ER Document Report ---
Doctor's Note Notes: 08/15/19 12:00 I was unable to evaluate the patient before she left for [facility] center. The EMTALA was filled up by Dr. Bucio.
== END 2019-08-15 13:40 | disposition short-term general hospital (02) ==
LOC: ER 21:42
DX: T56.892A Toxic effect of other metals, intentional self-harm, initial encounter (principal); X58.XXXA Exposure to other specified factors, initial encounter; F31.4 Bipolar disorder, current episode depressed, severe, without psychotic features; R45.851 Suicidal ideations; F17.210 Nicotine dependence, cigarettes, uncomplicated
CPT/HCPCS: 93005; 99285; 96360; 36415; 80307 ×4; 80178; 85025; 80053; 81001; 93010; J7030